=== PATIENT | female | born 1960 | race Caucasian/White ===

== ENCOUNTER → 2017-01-12 | Outpatient (CLI) | payer OTHER | LOC: CIMAGING 07:35 | PROVIDERS: ATTEND Physician Assistant Medical | DX: R16.0 Hepatomegaly, not elsewhere classified (principal); K76.0 Fatty (change of) liver, not elsewhere classified | CPT/HCPCS: 76700-PO ==

== ENCOUNTER 2017-06-13 11:58 | Day surgery (SDC) | payer OTHER ==
--- NOTE | 2017-06-13 11:53 | PDHPUP ---
History & Physical Update H&P update statement: This history and physical update is based on an assessment of the patient which was completed after admission or registration (within 24 hours), but prior to the surgery/procedure. H&P changes: Olesya from [facility] on behalf of Dr. Foster and Chirag recent hematology consult with him related no contraindication for her planned surgery or prophylactic anticoagulation , her # [phone]
[2017-06-13] MEDS ORDERED: LIDOCAINE 1% 2 ML INJ ID PRN (12:36)
[2017-06-13] MEDS ORDERED: LR 1,000 ML IV ONE (12:36)
--- NOTE | 2017-06-13 13:49 | PDANEPAE ---
ANE Past Medical History - Cardiovascular History Hx Hypertension: No Hx Arrhythmias: No Hx Chest Pain: No Hx Coronary Artery / Peripheral Vascular Disease: No Hx CHF / Valvular Disease: No Hx Palpitations: No Cardiovascular History Comment: RHEUMATIC FEVER A CHILD. PT HAD CARDIAC WORK -UP 09/2016 FOR SOB,PALPITATIONS & ELEV BP AND DETERMINED TO BE STRESS RELATED.ASYMPTOMATIC SINCE. - Pulmonary History Hx COPD: No Hx Asthma/Reactive Airway Disease: No Hx Recent Upper Respiratory Infection: No Hx Oxygen in Use at Home: No Hx Sleep Apnea: No Sleep Apnea Screening Result - Last Documented: Negative - Neurologic History Hx Cerebrovascular Accident: No Hx Seizures: No Hx Dementia: No - Endocrine History Hx Diabetes: No Hypothyroid: Yes Endocrine History Comment: HYPOTHYROID - Renal History Hx Renal Disorders: No - Liver History Hx Hepatic Disorders: No - Neurological & Psychiatric Hx Hx Neurological and Psychiatric Disorders: No - Cancer History Hx Cancer: Yes Cancer History Comment: BASAL CELL REMOVED JAW - Congenital Disorder History Hx Congenital Disorders: No - GI History Hx Gastrointestinal Disorders: Yes Gastrointestinal History Comment: GASTRITIS. COLLANGENOUS COLITIS - Other Health History Other Health History: -RHEUMATOID ARTHRITIS TREATED WITH NATURAL SUPPLEMENTS ONLY. -RHEUMATIC FEVER CHILD - Chronic Pain History Chronic Pain: Yes (L FOOT) - Surgical History Prior Surgeries: L FOOT SURGERY. COLONOSCOPIES ANE Review of Systems - Exercise capacity METS (RN): 4 METS ANE Patient History - Allergies Allergies/Adverse Reactions: Penicillins Allergy (Verified 06/13/17 12:34) Hives - Home Medications Home Medications: [place] Thyroid 05/10/17 [Last Taken 06/13/17 03:00] Aspirin 05/10/17 [Last Taken 2 Weeks Ago] Herbals/Supplements -Info Only 05/10/17 [Last Taken 06/13/17 06:30] Ibuprofen 05/10/17 [Last Taken 06/09/17] Omeprazole 05/10/17 [Last Taken 3 Months Ago] Steroid Lo Dose 05/10/17 [Last Taken 06/05/17] - NPO status NPO Since - Liquids (Date): 06/12/17 NPO Since - Liquids (Time): 10:15 NPO Since - Solids (Date): 06/13/17 NPO Since - Solids (Time): 06:50 - Smoking Hx Smoking Status: Former smoker - Family Anes Hx Family Hx Anesthesia Complications: NEG ANE Labs/Vital Signs - Vital Signs Blood Pressure: 114/70 Heart Rate: 70 Respiratory Rate: 16 O2 Sat (%): 94 Height: 165.1 cm Weight: 77.111 kg ANE Physical Exam - Airway Mallampati Score: Class 2 Mouth exam: normal dental/mouth exam - Pulmonary Pulmonary: no respiratory distress - Cardiovascular Cardiovascular: regular rate and rhythym - ASA Status ASA Status: II ANE Anesthesia Plan Anesthesia Plan: GA with mask, MAC (GA withIV medication)
[2017-06-13] MEDS ORDERED: CLINDAMYCIN 900 MG/DEXTROSE 50 ML IV ONE (13:52)
[2017-06-13] MEDS ORDERED: ROPIVACAINE HCL 150 MG/30 ML INJ ONE (14:01)
[2017-06-13] MEDS ORDERED: fentaNYL 100 MCG/2 ML INJ ONE (14:01)
[2017-06-13] MEDS ORDERED: PROPOFOL/EMULSION 500 MG/50 ML BOTTLE IV ONE ×2 (14:01)
[2017-06-13] MEDS ORDERED: LIDOCAINE 1% 300 MG/30 ML SDV ONE (14:01)
[2017-06-13] MEDS ORDERED: BUPIVACAINE 0.5% 30 ML SDV ONE (14:02)
[2017-06-13] MEDS ORDERED: BACITRACIN 50,000 UNITS/10 ML SYR IRR ONE (14:02)
[2017-06-13] MEDS ORDERED: DEXAMETHASONE 4 MG/ML VIAL ONE (14:02)
[2017-06-13] MEDS ORDERED: BUPIVACAINE 0.25% 30 ML SDV ONE (15:06)
[2017-06-13] MEDS ORDERED: LR 500 ML IV PRN (17:31)
[2017-06-13] MEDS ORDERED: fentaNYL 100 MCG/2 ML INJ IVP PRN (17:31)
[2017-06-13] MEDS ORDERED: ACETAMINOPHEN 500 MG TAB PO PRN (17:31)
[2017-06-13] MEDS ORDERED: ONDANSETRON 4 MG/2 ML VIAL IVP PRN (17:31)
[2017-06-13] MEDS ORDERED: NALOXONE HCL 0.4 MG/ML INJ IVP PRN (17:31)
--- NOTE | 2017-06-13 17:31 | POSTANESTH ---
Post Anesthetic Evaluation Cardiovascular Status: Normal, Stable Respiratory Status: Normal, Stable Level of Consciousness/Mental Status: Can Participate in Eval Pain Control: Adequate, Prn Tx Ordered Nausea/Vomiting Control: Adequate, Prn Tx Ordered Complications Possibly Related to Anesthesia: None Noted
--- NOTE | 2017-06-13 17:39 | POSTOPPROG ---
Post Op Note Date of Operation: 06/13/17 Surgeon: Nessa River Quarry Manager: Jeannette River Anesthesiologist: Cristo Corrigan MD Anesthesia: IV Sedation Pre-op Diagnosis: bunion, HAV, HT 2,3 left foot Post-op Diagnosis: bunion, HAV,HT 2,3, left foot Indication: Pain , deformity Procedure: fusion first MTPJ, fusion digits 2,3 left foot Findings: soft bone. errosions first MTPJ Inf/Abcess present in the surg proc area at time of surgery?: No Depth: Deep Incisional (Fascial) EBL: Minimal Complications: oozing /bleeding Specimen(s): none
[2017-06-13] MEDS ORDERED: CLINDAMYCIN 300 MG in NS 100 ML IV ONE (17:40)
[2017-06-13 18:32] VITALS: PULSE 66; RESP 16; TEMP 96.8
[2017-06-13 19:31] VITALS: BP 133/89; O2SAT 95
[2017-06-13] MEDS ORDERED: CLINDAMYCIN 600 MG/DEXTROSE 50 ML IV ONE (20:00)
--- NOTE | 2017-06-14 05:19 | GOP ---
[f rep st] OPERATIVE REPORT DATE OF OPERATION: 06/13/2017 SURGEON: Nessa River DPM PARTICIPANT ADMINISTRATOR: Jeannette River DPM. ANESTHESIA: MAC, light general. ANESTHESIOLOGIST: Russell Corrigan MD. PREOPERATIVE DIAGNOSIS: 1. Bunion, hallux abductovalgus deformity, rheumatoid arthritis, left foot. 2. Hammertoe deformity, 2nd digit, left foot. 3. Hammertoe deformity, 3rd digit, left foot. POSTOPERATIVE DIAGNOSIS: 1. Bunion, hallux abductovalgus deformity, rheumatoid arthritis, left foot. 2. Hammertoe deformity, 2nd digit, left foot. 3. Hammertoe deformity, 3rd digit, left foot. PROCEDURE PERFORMED: 1. Fusion 1st metatarsophalangeal joint with plate and screw fixation, left foot. 2. Hammertoe repair, 2nd digit, involving fusion proximal interphalangeal joint with screw and pin fixation, left foot. 3. Fusion proximal interphalangeal joint screw and pin fixation, 3rd digit, left foot. FINDINGS: SPECIMENS: No specimens sent to pathology. ESTIMATED BLOOD LOSS: Less than 25 cc. INDICATIONS: The patient was complaining of significant pain with her hammertoe deformity, difficul ty finding shoes to wear because rubbing, also complains bunion causing her pain. She has tried to modify her shoes, and tried various pads, despite persistent pain. She has rheumatoid arthritis, ho wever, has been in remission. She sees Dolly Cardoza, family nurse practitioner. She is on many [place] pplements for her conditions. Blood pressure controlled with herbal medications. Recent labs demon strated low platelet count at 144 and I believe 149, therefore referral to Hematology for guidance. Consult obtained, and the patient was cleared for surgery, as well as for prophylactic anticoagulat ion if needed. 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 Initially Lapidus procedure was discussed, however, in light of her history with rheum atoid arthritis, osteopenic bone, family history of blood clots, chronic use of steroids (for contro lling diarrhea), I have decided the optimal procedure is fusion of the 1st MPJ, which will create op timal stability for the forefoot with predicted results, as well as less risk as compared to Lapidus from a healing perspective. First MPJ fusion will allow earlier mobility, and therefore decreased risk and prognosis good healing wallace. I reviewed all this with the patient, and at this time she el ects to proceed with surgery on the left foot. DESCRIPTION OF PROCEDURE: The patient was brought into the operating room, placed on the operating table in the supine position. Intravenous sedation/light general administered by the anesthesiologi . Posterior tibial and peripheral nerve block was obtained utilizing a total of 25 cc of a 1:1:1 mix of 0.5% Marcaine plain, 1% lidocaine plain, and 0.5% ropivacaine. The lower extremity was prepp ed and draped in the usual sterile manner. After the limb had been elevated and exsanguinated with an Esmarch bandage, an ankle tourniquet inflated to 210 25 mmHg, and the procedure was begun. Procedure number 1: Attention directed toward the dorsal medial aspect of the 1st metatarsophalange al joint where a linear incision was created. Incision carefully deepened with care of neurovascula r structures, and clamped and cauterized bleeders. Incision deepened where linear capsulotomy perfo rmed exposing hypertrophied medial eminence of the 1st metatarsal head, and erosive changes were not ed along the dorsal and medial aspects of the cartilage, as well as bony eminence dorsal and dorsal lateral aspect of the metatarsal head. Approximately 30% of the base of the proximal phalanx with e rosions along the circumference and cartilage noted to be thin. Medial eminence resected with a sag ittal saw. Then, the 1st metatarsal head and base of the proximal phalanx were prepped K-wire and r eamers removing cartilage, and utilizing microfracture and osteotome and mallet joint was further pr epped. Prior to further prepping the joint, the wound was copiously irrigated with bacitracin irrig ation solution. Alejandra bone graft was then placed into the joint, and hallux was placed in to redu chary alignment, improving the 1st intermetatarsal angle as well. Temporary fixation achieved with a K-wire, and the a standard MTP plate Arthrex locking plate was applied. Loading of the forefoot, ex cellent alignment noted of the hallux and metatarsal, good alignment in the sagittal plane, and with adequate dorsiflexion of the hallux IPJ for ambulation. A compression screw was then placed, 3.5 h eadless from proximal medial to distal lateral securing the alignment. Then, the plate was applied, a 12 x 3 mm locking screw. Then the proximal compression screw was placed, 18 mm x 3 mm cortical s crew. Remaining hardware was placed to secure the plate, including a 14 mm x 3 mm locking screw, 16 mm x 3 mm locking screw, 18 mm x 3 mm screw, and there was another 16 x 3 mm cortical screw. Note the headless compression screw measured 22 mm in length and was a 3.5. C-arm pictures taken through out the procedure to check alignment and positioning. The bone was noted to be extremely soft. How ever, despite being soft fixation was excellent, and the site was stable. The wound was copiously i rrigated with bacitracin irrigation solution, and capsular tissue closed with 2-0 and 3-0 Vicryl. S ubcutaneous closure with Monocryl. Procedure number 2, Hammertoe correction 2nd digit, left foot: Attention directed toward the 2nd di git where a linear incision was created. Incision carefully deepened with care of neurovascular str uctures and clamped and cauterized bleeders. Transverse capsulotomy tenotomy created at the proxima l interphalangeal joint, cartilage resected off the base of the middle phalanx, and off the head of the proximal phalanx in preparation for fusion. Then utilizing the OsteBlueKai system, K-wire driven t hrough the middle distal phalanx, retrograded proximally. Then, a headless 2.5 x [address] aced in the distal aspect of the digit and proximally securing the digit in straight alignment, comp ression obtained through the proximal interphalangeal joint. With loading of the forefoot, satisfac tory alignment of the digit noted. Then, after the screw was placed and in good position, the K-wir e was placed crossing the metatarsal phalangeal joint to allow for additional stability of the digit . The wound was copiously irrigated with bacitracin irrigation solution. Extensor tendon reapproxi mated after the lengthening with 4-0 Vicryl. Subcutaneous closure 4-0 Monocryl. Procedure number 3, hammertoe repair, 3rd digit, left foot: Procedure performed in identical fashio n to the 2nd digit. The screw, however, was a 2.0 measuring 42 mm in length. K-wire also used util ized and driven across the metatarsophalangeal joint. The ankle tourniquet was released prior to closure of all wounds, and a hyperemic response was noted to all digits. There were no active bleeders, however, there was a continuous oozing that was pres ent. Surgicel was utilized to help control this. 4-0 Monocryl for subcutaneous closure, and then 4 -0 Prolene in a horizontal mattress and simple interrupted suture manner to close all wounds. Dress ings included Betadine ointment at pin exiting sites, Xeroform on the incision sites, 4 x 4's, fluff s, Mitchell, reinforced with tape and an Mukesh bandage. The patient tolerated the procedure and anesthes ia well, and left the operating room with vital signs stable and vascular status intact to all digit s. There were no intraoperative complications, with the exception of some oozing, this is likely fr om her herbal medication she takes for her high blood pressure. Blood pressure, however, was contro lled throughout the procedure. In postoperative recovery, the patient was doing well. Her girlfriend, Nargis, will be providing her transportation home. She was fitted with instructions to be nonweightbearing. ADDITIONAL INJECTABLES: Included an additional 10 cc of 0.25% Marcaine plain, performed a posterior tibial block, as well as intraoperatively there was an additional 7 cc of 1% lidocaine plain admini stered. PLAN: To follow up in 2 days for wound check. PROGNOSIS: Good. /[id number]/MODL
== END 2017-06-13 19:28 | disposition home or self-care (01) ==
LOC: FSGY 11:58
PROVIDERS: ATTEND Podiatrist
PROC: 0SGQ04Z Fusion of Left Toe Phalangeal Joint with Internal Fixation Device, Open Approach (ICD-10-PCS; principal; 2017-06-13 13:30)
PROC: 0SGN04Z Fusion of Left Metatarsal-Phalangeal Joint with Internal Fixation Device, Open Approach (ICD-10-PCS; principal; 2017-06-13 13:30)
DX: M21.612 Bunion of left foot (principal); M06.9 Rheumatoid arthritis, unspecified; M20.5X2 Other deformities of toe(s) (acquired), left foot; M20.42 Other hammer toe(s) (acquired), left foot; M81.0 Age-related osteoporosis without current pathological fracture; Z79.52 Long term (current) use of systemic steroids
CPT/HCPCS: 28285; 28750; 73630; C1769; C1713; C1762; J1100; J2704; J2795; J3010

== ENCOUNTER 2017-10-02 11:10 | Day surgery (SDC) | payer OTHER ==
[~2017-10-02 11:10] MED LIST: PROMETHAZINE HCL 25 MG TAB PO SCH
[2017-10-02] MEDS ORDERED: LIDOCAINE 1% 2 ML INJ ONE (11:38)
[2017-10-02] MEDS ORDERED: LR 1,000 ML IV ONE (11:43)
[2017-10-02] MEDS ORDERED: LIDOCAINE 1% 2 ML INJ ID PRN (11:43)
[2017-10-02] MEDS ORDERED: BUPIVACAINE 0.5% 30 ML SDV ONE (12:02)
[2017-10-02] MEDS ORDERED: ROPIVACAINE HCL 150 MG/30 ML INJ ONE (12:02)
[2017-10-02] MEDS ORDERED: DEXAMETHASONE 4 MG/ML VIAL ONE (12:03)
[2017-10-02] MEDS ORDERED: BACITRACIN 50,000 UNITS/10 ML SYR IRR ONE ×2 (12:04→13:57)
[2017-10-02] MEDS ORDERED: LIDOCAINE 1% 300 MG/30 ML SDV ONE (12:04)
[2017-10-02] MEDS ORDERED: LIDOCAINE 2% 5 ML SDV ONE ×2 (12:05→13:09)
[2017-10-02 12:08] VITALS: PULSE 63; RESP 12
[2017-10-02] MEDS ORDERED: ceFAZolin 2 GM/SWFI 2 GM/20 ML SYR IVP ONE (12:35)
--- NOTE | 2017-10-02 12:35 | PDHPUP ---
History & Physical Update H&P update statement: This history and physical update is based on an assessment of the patient which was completed after admission or registration (within 24 hours), but prior to the surgery/procedure.
[2017-10-02] MEDS ORDERED: MIDAZOLAM 2 MG/2 ML VIAL IVP ONE (12:59)
--- NOTE | 2017-10-02 13:00 | PDANEPAE ---
ANE History of Present Illness foot ANE Past Medical History - Cardiovascular History Hx Hypertension: No Hx Arrhythmias: No Hx Chest Pain: No Hx Coronary Artery / Peripheral Vascular Disease: No Hx CHF / Valvular Disease: No Hx Palpitations: No Cardiovascular History Comment: RHEUMATIC FEVER A CHILD. PT HAD CARDIAC WORK -UP 09/2016 FOR SOB,PALPITATIONS & ELEV BP AND DETERMINED TO BE STRESS RELATED.ASYMPTOMATIC SINCE. - Pulmonary History Hx COPD: No Hx Asthma/Reactive Airway Disease: No Hx Recent Upper Respiratory Infection: No Hx Oxygen in Use at Home: No Hx Sleep Apnea: Yes Sleep Apnea Screening Result - Last Documented: Positive - Neurologic History Hx Cerebrovascular Accident: No Hx Seizures: No Hx Dementia: No - Endocrine History Hx Diabetes: No Endocrine History Comment: HYPOTHYROID - Renal History Hx Renal Disorders: No - Liver History Hx Hepatic Disorders: No - Neurological & Psychiatric Hx Hx Neurological and Psychiatric Disorders: No - Cancer History Hx Cancer: Yes Cancer History Comment: BASAL CELL REMOVED JAW - Congenital Disorder History Hx Congenital Disorders: No - GI History Hx Gastrointestinal Disorders: Yes Gastrointestinal History Comment: GASTRITIS. COLLANGENOUS COLITIS - Other Health History Other Health History: -RHEUMATOID ARTHRITIS TREATED WITH NATURAL SUPPLEMENTS ONLY. -RHEUMATIC FEVER CHILD - Chronic Pain History Chronic Pain: Yes (NECK AND HIP) - Surgical History Prior Surgeries: L FOOT SURGERY. COLONOSCOPIES ANE Review of Systems Review of Systems: - Exercise capacity METS (RN): 4 METS ANE Patient History - Allergies Allergies/Adverse Reactions: Penicillins Allergy (Verified 06/13/17 12:34) Hives - Home Medications Home Medications: [place] Thyroid 05/10/17 [Last Taken 10/02/17] Aspirin 05/10/17 [Last Taken 09/18/17] Herbals/Supplements -Info Only 05/10/17 [Last Taken 09/25/17] Ibuprofen 05/10/17 [Last Taken 09/18/17] Omeprazole 05/10/17 [Last Taken 3 Months Ago ~03/14/17] Steroid Lo Dose 05/10/17 [Last Taken 06/05/17] - NPO status NPO Since - Liquids (Date): 10/02/17 NPO Since - Liquids (Time): 09:00 NPO Since - Solids (Date): 10/02/17 NPO Since - Solids (Time): 00:30 - Anes Hx Anes Hx: no prior problems - Smoking Hx Smoking Status: Former smoker - Family Anes Hx Family Hx Anesthesia Complications: NEG ANE Labs/Vital Signs - Vital Signs Blood Pressure: 135/82 Heart Rate: 63 Respiratory Rate: 12 O2 Sat (%): 96 Height: 167.64 cm Weight: 81.647 kg ANE Physical Exam - Airway Mallampati Score: Class 2 Mouth exam: normal dental/mouth exam - Pulmonary Pulmonary: no respiratory distress - Cardiovascular Cardiovascular: regular rate and rhythym - ASA Status ASA Status: II ANE Anesthesia Plan Anesthesia Plan: GA with mask
[2017-10-02] MEDS ORDERED: fentaNYL 100 MCG/2 ML INJ ONE (13:09)
[2017-10-02] MEDS ORDERED: PROPOFOL/EMULSION 500 MG/50 ML BOTTLE IV ONE ×4 (13:09→15:31)
[2017-10-02] MEDS ORDERED: POVIDONE-IODINE 30 GM OINTTUBE TP ONE (16:20)
[2017-10-02] MEDS ORDERED: ALBUTEROL 3 ML DEYVIAL IH PRN (16:34)
[2017-10-02] MEDS ORDERED: LR 500 ML IV PRN (16:34)
[2017-10-02] MEDS ORDERED: NALOXONE HCL 0.4 MG/ML INJ IVP PRN (16:34)
[2017-10-02] MEDS ORDERED: fentaNYL 100 MCG/2 ML INJ IVP PRN (16:34)
[2017-10-02] MEDS ORDERED: ONDANSETRON 4 MG/2 ML VIAL IVP PRN (16:34)
[2017-10-02 16:38] VITALS: TEMP 97.5
--- NOTE | 2017-10-02 16:43 | POSTOPPROG ---
Post Op Note Date of Operation: 10/02/17 Surgeon: Nessa River Facilities Painter: leigh River Anesthesiologist: Jean Muñiz MD Anesthesia: Other (Specify) (MAC/light general) Pre-op Diagnosis: Hallux valgus, hammertoes 2,3,4 right foot .RA Post-op Diagnosis: same Indication: pain, deformity Procedure: fusion first MTPJ, Hammertoe repair 2,3,4 right Findings: degenerative changes first met head. Inf/Abcess present in the surg proc area at time of surgery?: No Depth: Deep Incisional (Fascial) EBL: Minimal Complications: none Specimen(s): none
[2017-10-02] MEDS ORDERED: CEFAZOLIN 1 GM/DEXTROSE/50 ML BAG IV ONE (17:02)
[2017-10-02 17:38] VITALS: BP 151/92
[2017-10-02 18:10] VITALS: O2SAT 95
--- NOTE | 2017-10-02 23:44 | GOP ---
[f rep st] OPERATIVE REPORT DATE OF OPERATION: 10/02/2017 SURGEON: Nessa River DPM FIRE PREVENTION RESEARCH ENGINEER: Jeannette River DPM ANESTHESIA: Light general/MAC. ANESTHESIOLOGIST: Jean Muñiz MD PREOPERATIVE DIAGNOSIS: 1. Hallux valgus deformity, bunion, right foot. 2. Hammertoe deformity, 2nd digit, right foot. 3. Hammertoe deformity, 3rd digit, right foot. 4. Hammertoe deformity, 4th digit, right foot. POSTOPERATIVE DIAGNOSIS: 1. Hallux valgus deformity, bunion, right foot. 2. Hammertoe deformity, 2nd digit, right foot. 3. Hammertoe deformity, 3rd digit, right foot. 4. Hammertoe deformity, 4th digit, right foot. PROCEDURE PERFORMED: 1. Fusion 1st metatarsophalangeal joint using screw and plate fixation, right foot. 2. Hammertoe repair, 2nd digit with screw and pin fixation, right foot. 3. Hammertoe repair, 3rd digit with screw and pin fixation, right foot. 4. Hammertoe repair, 4th digit with screw and pin fixation, right foot. FINDINGS: Cartilage defect head of first metatarsal, 1 cm in size. Bone very soft. INDICATION FOR SURGERY: Pain and deformities, bunion and hammertoes 2,3,4 right foot. Patient noticing more symptoms, progressing fast in the past few months. Gifty has rheumatoid arthritis ,but is in remission. She underwent surgery on the left foot involving fusion of the first MTPJ and hammertoe repair toes 2,3 about 4 months ago and had an uneventful recovery, happy with outcome. At this time elects to proceed with surgery on the right foot. DESCRIPTION OF PROCEDURE: Patient was brought into the operating room, placed on the operating table in the supine position. Intravenous sedation administered light anesthesia by the anesthesiologist. A posterior tibial and peripheral nerve block was obtained utilizing 20 cc of a 1:1:1 mix of 1% lidocaine plain, 0.5% Marcaine plain, and 0.5% ropivacaine. The lower extremity was prepped and draped in the usual sterile manner. After the limb had been elevated, it was exsanguinated with an Esmarch bandage and ankle tourniquet inflated to 250 mmHg. Webril padding utilized under the ankle cuff. Noted systolic blood pressure at the time was 140. Procedure number 1, bunion/hallux valgus repair. Attention was directed toward the dorsomedial aspect of the 1st metatarsophalangeal joint where a 6 cm linear incision was created. Incision carefully deepened with care of neurovascular structures and then clamp and cauterize bleeders. Linear incision was carefully deepened with care of neurovascular structures and clamp and cauterize bleeders. Linear capsulotomy performed exposing the 1st metatarsophalangeal joint. Degenerative and erosive changes noted in the central aspect of the 1st metatarsal head involving approximately 30%. Degenerative changes also noted along the base of the proximal phalanx. Medial eminence was resected with a sagittal saw, and then utilizing the K-wires as guide pins and Arthrex reamer system, the joint was repaired, cartilage was resected. Wound was irrigated throughout the procedure. A 2.0 drill bit was utilized to prepare the joint as well as microfracture. Alejandra bone graft placed within the joint. Hallux was placed into optimal position, and it appeared that the short Arthrex 1st MPJ plate fit the best. It was secured with pin tacks and then a compression screw was placed across the fusion site, a 3.5 headless screw. K-wire was utilized to obtain positioning and alignment. The 1st screw that was placed distal medial to proximal distal, once fully placed compression of screw placed hallux in a slight varus - a bit to straight position (as her bone was soft) and therefore had to be removed. Another compression screw was then placed from proximal medial to distal lateral , same size screw 34 mm, 3.5 headless, and excellent compression obtained and excellent alignment of the hallux achieved . The plate was then fixated distally with a 3.0 mm locking screw measuring 14 mm in length and then a proximal compression screw was placed, a cortical screw 3.0 mm measuring 22 mm in length. A 2nd distal screw was placed, a 3.0 mm, 14 mm in length and a 2nd proximal locking screw, this time a 3.0 mm x 16 mm in length. I did not attempt to put a screw across the 3rd hole proximally because the compression screw ran right underneath it and I did not want to disrupt that positioning and alignment. The site was noted to be stable, excellent compression achieved at the fusion site as well as stability. Hallux in excellent alignment. The wound was copiously irrigated with bacitracin irrigation solution. The wound closed with 2-0 and 3-0 Vicryl. Subcutaneous closure 4-0 Monocryl. Skin was closed with 4-0 Prolene in a horizontal mattress and simple interrupted suture manner. Next, the tourniquet was released and a normal hyperemic response was noted to all digits. Attention was directed toward the lesser digits. Procedure number 2, hammertoe repair 2nd digit, right foot. Attention was directed to the dorsal aspect of the 2nd digit where a linear incision was created dorsal to the proximal interphalangeal joint. Incision carefully deepened with care of neurovascular structures, clamped and cauterized bleeders. Transverse capsulotomy, tenotomy performed, exposing the proximal interphalangeal joint. Utilizing sagittal saw , the head of the proximal phalanx and base of the middle phalanx was resected. Then utilizing K-wire driven from the middle and distal phalanx and retrograded proximally. Digit was placed in straight alignment. Note, since there was extra Alejandra bone graft, it was also placed at the fusion site. C- arm utilized throughout the procedure to verify alignment and positioning. Once good alignment achieved, Osteomed screw was placed across the 2nd digit measuring 44 mm in length. This was a 2.4 headless Osteomed screw. Note, then the K-wire was driven across the metatarsophalangeal joint for extra added stability across the metatarsophalangeal joint. Again, C-arm pictures taken to verify alignment and positioning. Noted to be excellent. The extensor tendon was slightly lengthened in a Z-type fashion and reapproximated with 2-0 Vicryl. Subcutaneous closure with 4-0 Monocryl. Skin was closed with 4-0 Prolene in a horizontal and interrupted suture manner. Procedure number 3, hammertoe repair, 3rd digit, performed in identical fashion to the hammertoe 2nd digit. Screw was a 2.0 headless Osteomed screw measuring 40 mm in length. Procedure number4, hammertoe repair, 4th digit, right foot performed in the identical fashion as the 2nd digit. A 2.0 headless Osteomed screw measuring 34 mm in length was utilized. Note: The procedures on digits 2,3,4 were performed assembly line style , all skin incisions first made, to digits 2, 3 and 4 and then tendon, bone, fixation at the same Closure was also at the same time with tourniquet released prior to closure with a normal hyperemic response noted to all digits. The bone was noted to be very soft. However, despite excellent alignment was achieved. Dressings included Xeroform, 4x4s, fluffs, Mitchell, reinforced with an Mukesh bandage and tape. The patient tolerated the procedure and anesthesia well and left the operating room vital signs stable and vascular status intact to all digits. There were no intraoperative complications. In postoperative recovery, patient was doing well. Estimated blood loss minimal. Additional injectables included 15 cc of a 1:1 mix of 0.5% ropivacaine combined with 0.5% Marcaine plain to enhance postoperative anesthesia. No specimen sent to Pathology. She has a Cryo/Cuff at home. She has postoperative boot as well as postoperative shoe at home. She is to follow up in our office in 2 days. Prognosis, good. INDICATIONS FOR PROCEDURE: Patient underwent surgery on the left foot without complications, had an uneventful postoperative recovery and did well. At this time, she elects to proceed with surgery on the right foot. Bunion deformity progressively worsening, hammertoe deformities as well. She has rheumatoid arthritis but is presently in remission. We discussed hallux valgus repair involving osteotomies. However, suspect degenerative changes in the joint, and historically rheumatoid arthritis often adversely affects the 1st metatarsophalangeal joint and there is no guarantees long-term for stability. Therefore, recommending 1st metatarsophalangeal joint fusion as the optimal procedure to address the bunion and to provide a nice stable foot. /[id number]/MODL MTDD
== END 2017-10-02 18:20 | disposition home or self-care (01) ==
LOC: FSGY 11:10
PROVIDERS: ATTEND Podiatrist
PROC: 0LQV0ZZ Repair Right Foot Tendon, Open Approach (ICD-10-PCS; principal; 2017-10-02 12:30)
PROC: 0SNP0ZZ Release Right Toe Phalangeal Joint, Open Approach (ICD-10-PCS; principal; 2017-10-02 12:30)
PROC: 0SGP04Z Fusion of Right Toe Phalangeal Joint with Internal Fixation Device, Open Approach (ICD-10-PCS; principal; 2017-10-02 12:30)
DX: M20.11 Hallux valgus (acquired), right foot (principal); M21.611 Bunion of right foot; M20.41 Other hammer toe(s) (acquired), right foot
CPT/HCPCS: 28285; 28760; 73630; C1769; C1713; C1762; J0690; J1100; J2250; J2704; J2795; J3010